=== PATIENT | female | born 1930 | race Caucasian/White ===

== ENCOUNTER → 2017-01-05 | Outpatient (CLI) | payer MEDICARE, BC ==
[2015-05-03 16:47] VITALS: BP 165/71
[~2017-01-05] MED LIST: ASPIRIN 81M81 MG/TA2 PO; BACTROBAN NASA0.9 GM NAS; CALCIUM + D 6001 TA1 PO; COREG25 MG PO; COUMADIN PO; COZAAR 50MG50 MG/TAB PO; DESONIDE CREAM TP; DETROL LA 4MG4 MG PO; DILTIAZEM 12HR120 MG PO; DILTIAZEM HYDR120 M2 PO; EPA FISH OIL1000 MG PO; ESTER-C 5001 TAB PO; FEMARA2.5 MG PO; FUROSEMIDE20 MG PO; GLUCOSAMINE CHO1 CA1 PO; HYTRIN 2MG CAPSU2 MG PO; LASIX20 MG PO; MINOXIDIL 2.5 PO; NORCO 325 MG-51 TAB PO; PLAVIX 75MG TAB75 MG PO; PRAVASTATIN SOD40 MG PO; SYNTHROID0.1 MG PO; TEKTURNA300 MG PO; VITAMIN D1000 IU PO; ZANTAC 300300 MG PO; ZOCOR40 MG PO
== END ==
LOC: VAS 15:08
DX: I70.1 Atherosclerosis of renal artery (principal); I65.23 Occlusion and stenosis of bilateral carotid arteries; I10 Essential (primary) hypertension; I34.0 Nonrheumatic mitral (valve) insufficiency; I07.1 Rheumatic tricuspid insufficiency; I27.2 Other secondary pulmonary hypertension; I35.1 Nonrheumatic aortic (valve) insufficiency; I37.1 Nonrheumatic pulmonary valve insufficiency

== ENCOUNTER → 2017-02-23 | Outpatient (CLI) | payer MEDICARE, BC ==
[2015-05-03 16:47] VITALS: BP 165/71
== END ==
LOC: MAMMO 08:21
DX: Z12.31 Encounter for screening mammogram for malignant neoplasm of breast (principal); Z85.3 Personal history of malignant neoplasm of breast
CPT/HCPCS: G0202

== ENCOUNTER → 2018-03-06 | Outpatient (CLI) | payer MEDICARE, BC ==
[2015-05-03 16:47] VITALS: BP 165/71
== END ==
LOC: RAD 09:47 → MAMMO 10:45 → RAD 10:45
DX: Z13.820 Encounter for screening for osteoporosis (principal); M85.852 Other specified disorders of bone density and structure, left thigh; M85.851 Other specified disorders of bone density and structure, right thigh; Z78.0 Asymptomatic menopausal state

== ENCOUNTER → 2018-03-06 | Outpatient (CLI) | payer MEDICARE, BC ==
[2015-05-03 16:47] VITALS: BP 165/71
== END ==
LOC: MAMMO 09:48
DX: Z12.31 Encounter for screening mammogram for malignant neoplasm of breast (principal); Z85.3 Personal history of malignant neoplasm of breast; Z92.3 Personal history of irradiation; Z98.890 Other specified postprocedural states

== ENCOUNTER → 2019-02-27 | Outpatient (CLI) | payer MEDICARE, BC ==
[2015-05-03 16:47] VITALS: BP 165/71
== END ==
LOC: MAMMO 09:41
DX: Z12.31 Encounter for screening mammogram for malignant neoplasm of breast (principal)

== ENCOUNTER → 2020-03-10 | Outpatient (CLI) | payer MEDICARE, BC ==
[2015-05-03 16:47] VITALS: BP 165/71
== END ==
LOC: MAMMO 03-03 10:45
DX: Z12.31 Encounter for screening mammogram for malignant neoplasm of breast (principal); Z90.11 Acquired absence of right breast and nipple

== ENCOUNTER → 2020-03-10 | Outpatient (CLI) | payer MEDICARE, BC ==
[2015-05-03 16:47] VITALS: BP 165/71
== END ==
LOC: RAD 09:58 → MAMMO 10:45
DX: Z13.820 Encounter for screening for osteoporosis (principal); M85.80 Other specified disorders of bone density and structure, unspecified site; Z78.0 Asymptomatic menopausal state

== ENCOUNTER 2021-04-15 10:58 | Outpatient (RCR) | payer MEDICARE, BC | END 2021-05-07 | disposition home or self-care (01) | LOC: PT 10:58 | DX: M25.551 Pain in right hip (principal) ==

== ENCOUNTER → 2021-04-20 | Outpatient (CLI) | payer MEDICARE, BC | LOC: MAMMO 04-15 10:45 | DX: Z12.31 Encounter for screening mammogram for malignant neoplasm of breast (principal) ==

== ENCOUNTER 2021-05-14 10:30 | Outpatient (RCR) | payer MEDICARE, BC | END 2021-06-07 | disposition home or self-care (01) | LOC: PT | DX: M25.551 Pain in right hip (principal) ==

== ENCOUNTER → 2021-06-11 | Outpatient (CLI) | payer MEDICARE, BC | LOC: RAD 06-08 10:00 → VAS 09:11 → RAD 09:30 | DX: I08.1 Rheumatic disorders of both mitral and tricuspid valves (principal) ==